=== PATIENT | male | born 1985 | race African-American/Black ===

== ENCOUNTER 2021-01-06 22:11 | Emergency (ER) | payer OTHER ==
[~2021-01-06] VITALS: Ht 182.9 cm; Wt 93.2 kg
[~2021-01-06 22:11] MED LIST: NO MEDS
[2021-01-06 23:50] VITALS: BP 142/89
== END 2021-01-07 03:00 | disposition home or self-care (01) ==
LOC: EMS 22:56
DX: R20.2 Paresthesia of skin (principal)
CPT/HCPCS: 99281; Z7502